=== PATIENT | female | born 1990 | race Caucasian/White ===

== ENCOUNTER → 2020-03-10 11:53 | Outpatient (BNVA) | payer OTHER, SELFPAY | PROVIDERS: Family Provider Nurse Practitioner; PCP Internal Medicine; Visit Provider Nurse Practitioner Family | DX: Z20.828 Contact with and (suspected) exposure to other viral communicable diseases (principal) | CPT/HCPCS: 87635 ==

== ENCOUNTER 2020-05-17 11:17 | Outpatient (CLI) | payer OTHER, SELFPAY ==
--- NOTE | 2020-05-17 | CT_ITS ---
WS: [id number] NONCONTRAST OF RIGHT LOWER EXTREMITY CLINICAL INFORMATION: Sinus tarsi TECHNIQUE: Noncontrast right lower extremity with coronal and sagittal reformatted images. Imaging obtained in neutral and supination with foot taped on the supination images. 3-D reformatted images w ere obtained. COMPARISON: 04 05,019 DLP: 1082.[address] scans at [facility] use at least one of these dose optimization techniques: automat ed exposure control; mA and/or kV adjustment per patient size (includes targeted exams where dose is matched to clinical indication); or iterative reconstruction. FINDINGS: Normal anatomic alignment. Normal medial and lateral malleolus. No acute avulsion fractures. Normal t alar dome.Normal calcaneus. Normal cuboid. Navicular is normal in appearance with mild hypertrophic r idging. Normal cuneiforms. Metatarsal bases appear normal. Normal tibiotalar joint. Mild plantar subc utaneous edema. Otherwise normal soft tissues. Tarsal coalition: None JOINT SPACES (normal joint space 6 mm): Middle talar facet and talus: 1.4 mm Talus and tarsal navicular: 1.0 mm 3-D REFORMAT NEUTRAL/SUPINATION INSTABILITY EVALUATION OF THE CALCANEUS, TALUS, AND NAVICULAR: Progressed joint space narrowing on the supination views with talocalcaneal measuring less than 1 mm and talonavicular measuring less than 1 mm on the supination views. Mild clockwise rotation of the an terior talus on the navicular between the neutral and supination views suggesting mild instability. N ormal rotation of the navicular relative to the first and second cuneiforms and metatarsals. CT/CT ankle RT wo con* [id number] IMPRESSION: 1. Abnormal joint space narrowing at the talocalcaneal/middle talar facet and talus/tarsal navicular articulations measuring less than 1 mm. This is progress ed on the supination imaging. 2. Slight clockwise rotation of the talus on the navicular suggesting mild ins tability on the supination imaging.
--- NOTE | 2020-05-17 11:25 | CT_ITS ---
WS: [id number] NONCONTRAST OF RIGHT LOWER EXTREMITY CLINICAL INFORMATION: Sinus tarsi TECHNIQUE: Noncontrast right lower extremity with coronal and sagittal reformatted images. Imaging obtained in neutral and supination with foot taped on the supination images. 3-D reformatted images w ere obtained. COMPARISON: 04 05,019 DLP: 1082.[address] scans at [facility] use at least one of these dose optimization techniques: automat ed exposure control; mA and/or kV adjustment per patient size (includes targeted exams where dose is matched to clinical indication); or iterative reconstruction. FINDINGS: Normal anatomic alignment. Normal medial and lateral malleolus. No acute avulsion fractures. Normal t alar dome.Normal calcaneus. Normal cuboid. Navicular is normal in appearance with mild hypertrophic r idging. Normal cuneiforms. Metatarsal bases appear normal. Normal tibiotalar joint. Mild plantar subc utaneous edema. Otherwise normal soft tissues. Tarsal coalition: None JOINT SPACES (normal joint space 6 mm): Middle talar facet and talus: 1.4 mm Talus and tarsal navicular: 1.0 mm 3-D REFORMAT NEUTRAL/SUPINATION INSTABILITY EVALUATION OF THE CALCANEUS, TALUS, AND NAVICULAR: Progressed joint space narrowing on the supination views with talocalcaneal measuring less than 1 mm and talonavicular measuring less than 1 mm on the supination views. Mild clockwise rotation of the an terior talus on the navicular between the neutral and supination views suggesting mild instability. N ormal rotation of the navicular relative to the first and second cuneiforms and metatarsals. CT/CT 3D reconstruction [id number] IMPRESSION: 1. Abnormal joint space narrowing at the talocalcaneal/middle talar facet and talus/tarsal navicular articulations measuring less than 1 mm. This is progress ed on the supination imaging. 2. Slight clockwise rotation of the talus on the navicular suggesting mild ins tability on the supination imaging.
--- NOTE | 2020-05-17 11:25 | CT_ITS ---
WS: [id number] NONCONTRAST OF RIGHT LOWER EXTREMITY CLINICAL INFORMATION: Sinus tarsi TECHNIQUE: Noncontrast right lower extremity with coronal and sagittal reformatted images. Imaging obtained in neutral and supination with foot taped on the supination images. 3-D reformatted images w ere obtained. COMPARISON: 04 05,019 DLP: 1082.[address] scans at [facility] use at least one of these dose optimization techniques: automat ed exposure control; mA and/or kV adjustment per patient size (includes targeted exams where dose is matched to clinical indication); or iterative reconstruction. FINDINGS: Normal anatomic alignment. Normal medial and lateral malleolus. No acute avulsion fractures. Normal t alar dome.Normal calcaneus. Normal cuboid. Navicular is normal in appearance with mild hypertrophic r idging. Normal cuneiforms. Metatarsal bases appear normal. Normal tibiotalar joint. Mild plantar subc utaneous edema. Otherwise normal soft tissues. Tarsal coalition: None JOINT SPACES (normal joint space 6 mm): Middle talar facet and talus: 1.4 mm Talus and tarsal navicular: 1.0 mm 3-D REFORMAT NEUTRAL/SUPINATION INSTABILITY EVALUATION OF THE CALCANEUS, TALUS, AND NAVICULAR: Progressed joint space narrowing on the supination views with talocalcaneal measuring less than 1 mm and talonavicular measuring less than 1 mm on the supination views. Mild clockwise rotation of the an terior talus on the navicular between the neutral and supination views suggesting mild instability. N ormal rotation of the navicular relative to the first and second cuneiforms and metatarsals. CT/CT ankle RT wo con* [id number] IMPRESSION: 1. Abnormal joint space narrowing at the talocalcaneal/middle talar facet and talus/tarsal navicular articulations measuring less than 1 mm. This is progress ed on the supination imaging. 2. Slight clockwise rotation of the talus on the navicular suggesting mild ins tability on the supination imaging.
== END 2020-05-17 11:18 | disposition home or self-care (01) ==
LOC: RADWPI 11:22
PROVIDERS: PCP Internal Medicine; Visit Provider Podiatrist Primary Podiatric Medicine
DX: M25.571 Pain in right ankle and joints of right foot (principal)
CPT/HCPCS: 73700; 76377

== ENCOUNTER 2020-08-25 19:32 | Emergency (ER) | payer OTHER, SELFPAY ==
[2020-08-25 19:38] VITALS: BP 147/92; PULSE 100; RESP 18; TEMP 36.8; O2SAT 98; BMI 23.8
--- NOTE | 2020-08-25 19:46 | ED_ITS ---
HPI - Extremity Problem General: Chief complaint: Extremity Injury, Upper Stated complaint: finger laceration Time Seen by Provider: 08/25/20 19:40 Source: patient Mode of arrival: ambulatory Limitations: no limitations History of Present Illness: HPI Narrative: Patient is a 30-year-old female who presents to ED today with a complaint to an injury to her left middle finger. Patient states she was at an auction and states she was picking up a metal pole when the pole accidentally slid down her left middle finger causing an abrasion. She states she is not having any bony tenderness. She has full ROM of digit. She knows the abrasion does not require repair. She is simply requesting a tetanus shot as she states hers was over 7 years ago. MD Complaint: extremity pain Onset (ago): hour(s) Location: left and upper extremity (middle finger) Radiation: none Relieving factors: nothing Exacerbating factors: nothing Associated symptoms: Reports no associated symptoms Review of Systems Musc: Reports: extremity pain (L middle finger) Skin/Breast: Reports: other (abrasion left middle finger) Neuro: Denies: numbness in extremities or sensory changes PFSH ED PFSH: Family History Mother SunDown syndrome Social History Smoking and tobacco status: former smoker Alcohol intake: current Alcohol intake frequency: holidays/special occasions only Marital status: Current gender identity: Female Female Reproductive History: Date of last menstrual period: 08/02/20 Spontaneous abortions: No Physical Exam Const: COMMON NORMALS: no acute distress, average body habitus, patient oriented x3, no limitations, healthy appearing, alert and well nourished Extremity: COMMON NORMALS: full ROM GENERAL: Yes normal exam except as noted OTHER: full ROM of L middle finger; no swelling; has small abrasion to volar PIP joint of left middle finger; NV intact Neuro: COMMON NORMALS: patient oriented x3, no focal motor deficits and no sensory deficits noted SENSORIUM/ORIENTATION: Yes alert Skin: NARRATIVE SKIN EXAM: see extremity assessment Course Vital Signs: Vital signs: Vital Signs Temperature 98.3 F 08/25/20 19:38 Pulse Rate 100 08/25/20 19:38 Respiratory Rate 18 08/25/20 19:38 Blood Pressure 147/92 08/25/20 19:38 Pulse Oximetry 98 08/25/20 19:38 MDM - Extremity (Nontraumatic) MDM Narrative: Medical decision making narrative: Tetanus updated. Wound does not require repair. Wound care discussed for home. Discharge Plan Discharge Patient Disposition: Home Clinical Impression: Abrasion of left middle finger Qualifiers: Encounter type: initial encounter Qualified Code(s): S60.413A - Abrasion of left middle finger, initial encounter Condition: Stable Prescriptions: No Action bupropion HCl [Wellbutrin XL] 300 mg tablet extended release 24 hr 300 mg PO QAM RF: 0 propranolol 80 mg tablet 80 mg PO TID RF: 0 cetirizine [Zyrtec] 10 mg tablet 10 mg PO DAILY RF: 0 methenamine hippurate 1 gram tablet 1 g PO DAILY RF: 0 ascorbate calcium (vitamin C) 500 mg tablet 500 mg PO BID RF: 0 budesonide-formoterol [Symbicort] 160-4.5 mcg/actuation HFA aerosol inhaler 2 puff inhalation BID RF: 0 Discharge Orders: Discharge ED (Routine); Ordered 08/25/20 Ordered By: Aminata Cobb Referrals: Hussein Martinez [Primary Care Provider] - Patient Instructions: Diphtheria/Tetanus Vaccine (Injection) Coding Level of Care Code ED Adult Literacy Instructor for Chg Fwd Exam Expanded Problem Focused
[2020-08-25 19:59] VITALS: BP 135/83; PULSE 66; RESP 16; TEMP 35.7
--- NOTE | 2020-08-25 20:02 | PC.NURSE ---
Pt has small lac to left middle finger. Pt has no continuous bleeding, just a small laceration.
[2020-08-25] MEDS: tetanus-diphtheria tox (adult) 0.5 mL SDV IM (20:03)
== END 2020-08-25 20:13 | disposition home or self-care (01) ==
LOC: ER 20:05
PROVIDERS: Emergency Provider Physician Assistant; PCP Internal Medicine
DX: S60.413A Abrasion of left middle finger, initial encounter (principal); Z87.891 Personal history of nicotine dependence; W22.8XXA Striking against or struck by other objects, initial encounter; Z23 Encounter for immunization
CPT/HCPCS: 90471; 90714; 99282

== ENCOUNTER 2020-11-08 20:14 | Emergency (ER) | payer OTHER, SELFPAY ==
[2020-11-08 20:39] VITALS: BP 156/84; PULSE 118; RESP 18; TEMP 36.6; O2SAT 95; BMI 23.8
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
[2020-11-08] MEDS: ipratropium-albuterol 3 mL Neb INHALATION (21:18)
[2020-11-08 21:20] VITALS: PULSE 118; RESP 24; O2SAT 96
[2020-11-08 21:25] VITALS: PULSE 120
[2020-11-08 22:06] VITALS: BP 140/86; PULSE 89; RESP 18; TEMP 37; O2SAT 97
== END 2020-11-08 22:08 | disposition home or self-care (01) ==
PROVIDERS: Emergency Provider Nurse Practitioner Family; PCP Internal Medicine
DX: J45.41 Moderate persistent asthma with (acute) exacerbation (principal); T59.91XA Toxic effect of unspecified gases, fumes and vapors, accidental (unintentional), initial encounter; Z87.891 Personal history of nicotine dependence
CPT/HCPCS: 94640; 99283

== ENCOUNTER 2021-11-28 08:19 | Outpatient (CLI) | payer OTHER, SELFPAY ==
--- NOTE | 2021-11-28 13:03 | PFTS_ITS ---
Date of Study:11/28/21 Date of Dictation: MECHANICS: Forced vital capacity (FVC) is normal. Forced expiratory volume in one second (FEV1) is normal. FEV1/FVC is reduced. FLOW VOLUME LOOP: Significant scooping. LUNG VOLUMES: Total lung capacity (TLC) is normal. Residual volume (RV) is normal. DIFFUSING CAPACITY FOR CARBON MONOXIDE: Normal. INTERPRETATION: The prebronchodilator spirometry is consistent with moderate airflow obstruction. The postbronchodilator spirometry is consistent with mild airflow obstruction. There is a significant postbronchodilator response. Lung volumes are normal. Gas exchange (DLCO) is normal. The pulmonary function tests are very consistent with reversible airflow obstruction such as asthma. MTDD
== END 2021-11-28 08:20 | disposition home or self-care (01) ==
LOC: RT 08:19
PROVIDERS: PCP Internal Medicine; Visit Provider Nurse Practitioner
DX: J45.40 Moderate persistent asthma, uncomplicated (principal)
CPT/HCPCS: 94060; 94726; 94729; J7614

== ENCOUNTER 2021-12-09 13:09 | Outpatient (CLI) | payer OTHER, SELFPAY ==
--- NOTE | 2021-12-09 13:22 | MM_ITS ---
WS: [id number] BILATERAL 3D TOMOSYNTHESIS DIGITAL DIAGNOSTIC MAMMOGRAPHY WITH CAD CLINICAL INFORMATION: LT BREAST LUMP HISTORY: LEFT breast lump COMPARISON: 2019 TECHNIQUE: Bilateral CC, MLO, and ML views. FINDINGS: The breasts are composed of heterogeneous fibroglandular density, which can limit the detection of sm all underlying mass lesions. Punctate and lucent centered calcifications. Palpable marker at the LEFT areola. Ultrasound described below ULTRASOUND BREAST LEFT TECHNIQUE: Ultrasound left breast focused area of concern. CLINICAL INFORMATION: LT BREAST LUMP COMPARISON: None. FINDINGS: Ultrasound LEFT breast in the area of concern near the areola. No suspicious cystic or solid lesions. Small dilated duct at the 9:00 position. No suspicious lesions to target for biopsy. Findings are be nign. MM/[place] [id number] IMPRESSION: BI-RADS: 2-Benign FOLLOW UP: 1 Year Follow-up Recommend return to annual screening mammography.
== END 2021-12-09 13:10 | disposition home or self-care (01) ==
PROVIDERS: PCP Internal Medicine; Visit Provider Nurse Practitioner
DX: N63.20 Unspecified lump in the left breast, unspecified quadrant (principal)
CPT/HCPCS: 76642; 77062

== ENCOUNTER 2021-12-12 20:00 | Outpatient (CLI) | payer OTHER, SELFPAY | END 2021-12-12 20:01 | disposition home or self-care (01) | LOC: SLEEP 12-13 06:45 | PROVIDERS: PCP Internal Medicine; Visit Provider Nurse Practitioner | DX: R06.83 Snoring (principal); R53.83 Other fatigue; G47.33 Obstructive sleep apnea (adult) (pediatric) | CPT/HCPCS: 95810 ==

== ENCOUNTER 2022-02-20 06:00 | Outpatient (RCR) | payer OTHER, SELFPAY | END 2022-02-24 23:59 | disposition home or self-care (01) | LOC: SPT 06:00 | PROVIDERS: PCP Internal Medicine; Visit Provider Nurse Practitioner | DX: N39.3 Stress incontinence (female) (male) (principal) | CPT/HCPCS: 97110; 97161 ==

== ENCOUNTER 2022-02-25 06:00 | Outpatient (RCR) | payer OTHER, SELFPAY | END 2022-03-26 23:59 | disposition home or self-care (01) | LOC: SPT 06:00 | PROVIDERS: PCP Internal Medicine; Visit Provider Nurse Practitioner | DX: N39.3 Stress incontinence (female) (male) (principal) | CPT/HCPCS: 97110; 97530 ==

== ENCOUNTER 2022-03-04 20:00 | Outpatient (CLI) | payer OTHER, SELFPAY | END 2022-03-04 20:01 | disposition home or self-care (01) | LOC: SLEEP 03-05 07:39 | PROVIDERS: PCP Internal Medicine; Visit Provider Nurse Practitioner | DX: G47.33 Obstructive sleep apnea (adult) (pediatric) (principal) | CPT/HCPCS: 95811 ==

== ENCOUNTER 2023-01-13 10:00 | Outpatient (CLI) | payer OTHER, SELFPAY ==
--- NOTE | 2023-01-13 10:06 | MM_ITS ---
WS: [id number] BILATERAL 3D TOMOSYNTHESIS DIGITAL SCREENING MAMMOGRAPHY WITH CAD CLINICAL INFORMATION: SCREENING HISTORY: Screening mammogram. No current complaints. COMPARISON: 12/09/2021 TECHNIQUE: Bilateral CC and MLO views. FINDINGS: The breasts are composed of heterogeneous fibroglandular density tissue, which can limit the detectio n of small underlying mass lesions. No suspicious mass, asymmetry, calcifications, or architectural d istortion. No evidence of malignancy. Punctate and lucent centered calcifications. IMPRESSION: MM/[place] [id number] BI-RADS: 2-Benign FOLLOW UP: 1 Year Follow-up Recommend return to annual screening mammography.
== END 2023-01-13 10:01 | disposition home or self-care (01) ==
PROVIDERS: PCP Internal Medicine; Visit Provider Internal Medicine
DX: Z12.31 Encounter for screening mammogram for malignant neoplasm of breast (principal)
CPT/HCPCS: 77063; 77067

== ENCOUNTER 2024-04-06 15:06 | Outpatient (CLI) | payer OTHER, SELFPAY ==
--- NOTE | 2024-04-06 15:16 | US_ITS ---
WS: [id number] RENAL ULTRASOUND HISTORY: DENSITY MEDIAL ASPECT OF RIGHT KIDNEY COMPARISON: None available. TECHNIQUE: 2-D and color Doppler imaging of the kidney submitted. Right kidney: 10.6 cm x 4.5 cm x 3.9 cm. Cortex: 1.3 cm Normal echogenicity with no hydronephrosis or mass. Left kidney: 9.2 cm x 4.9 cm x 4.4 cm. Cortex: 1.3 cm Normal echogenicity with no hydronephrosis or mass. Aorta: Normal. Urinary Bladder: Normal distention. US/US renal BI* [id number] IMPRESSION: Normal renal ultrasound.
== END 2024-04-06 15:07 | disposition home or self-care (01) ==
PROVIDERS: PCP Nurse Practitioner; Visit Provider Nurse Practitioner
DX: R93.421 Abnormal radiologic findings on diagnostic imaging of right kidney (principal)
CPT/HCPCS: 76770

== ENCOUNTER 2025-02-04 18:36 | Emergency (ER) | payer OTHER, SELFPAY ==
--- OUTSIDE RECORDS SUMMARY | 2025-02-04 18:43 | XMS_ITS | Clinical Summary ---
Author Organization [facility] Address [address] [place] [address] Care Team Providers Care Alarm Technician Name Role Phone Unavailable Primary Care Provider Unavailabl e Allergies Active Allergy Reactions Criticality Noted Date Comments Alpha-Gal (Bvucifsct-Mujhr-0,3-Galactose) Hives High 05/30/2024 Medications albuterol sulfate HFA 90 mcg/actuation aerosol inhaler Take by inhalation . 09/09/2023 Active buPROPion (WELLBUTRIN) 75 mg tablet Take 150 mg by mouth. 11/09/2023 Active gabapentin (NEURONTIN) 100 mg capsule Take 100 mg by mouth. 02/17/2024 Active Active Problems No known active problems Encounters Date Type Department Care Team Description 01/11/2025 External Device Data [facility]STRACTION Provider, Abstract 12/14/2024 External Device Data [facility] Provider, Abstract 12/13/2024 External Device Data [facility] Provider, Abstract 11/30/2024 External Device Data [facility] Provider, Abstract 11/29/2024 External Device Data [facility] Provider, Abstract 11/09/2024 External Device Data [facility] Provider, Abstract 11/09/2024 External Device Data [facility] Provider, Abstract from Last 3 Months Social History Tobacco Use Types Packs/Day Years Used Date Smoking Tobacco: Never Tobacco Cessation:Counseling Given: Not Answered Comments Unknown Sex and Gender Information Value Date Recorded Sex Assigned at Not on file Legal Sex Female 8:06 AM CLEAN UP SUPERVISOR Gender Identity Not on file Sexual Orientation Not on file Last Filed Vital Signs Vital Sign Reading Time Taken Comments Blood Pressure 102/70 05/30/2024 10:55 AM CLEAN UP SUPERVISOR Pulse - - Temperature - - Respiratory Rate - - Oxygen Saturation - - Inhaled Oxygen Concentration - - Weight 63.5 kg (140 lb) 05/30/2024 10:55 AM CLEAN UP SUPERVISOR Height 157.5 cm (5' 2 ) 05/30/2024 10:55 AM CLEAN UP SUPERVISOR Body Mass Index 25.61 05/30/2024 10:55 AM CLEAN UP SUPERVISOR Plan of Treatment Health Maintenance Due Date Last Done Comments Pre-Diabetes and Diabetes Screening 1988 HPV/Cotest (21-29) 2009 HPV VACCINES (1 - 3-dose SCD M series) 07/06/2015 CERVICAL CANCER SCREENING 2018 HPV/Cotest (30-65) 2018 PAP SMEAR 2018 08/18/2014, 01/25, 10/31/2009, Additional history exists INFLUENZA VACCINE (#1) 2024 , 03/03/2019, 02/12/2018, Additional history exists DTAP/TDAP/TD VACCINES (5 - T d or Tdap) 08/25/2030 08/25/2020, 07/28/2016, 05/04/2014, Additional history exists HEPATITIS B VACCINES Completed 02/08/2015, 06/20/2008, 12/10/2006, Additional history exists Insurance [place] [address] [employer]
--- OUTSIDE RECORDS SUMMARY | 2025-02-04 18:43 | XMS_ITS | Patient Health Record ---
Author Organization [facility] Address [address] [place] [address] Care Team Providers Care Lawn And Garden Technician Name Role Phone Khoi Alejandro Primary Care Provider JAXSON Jordan Unavailable [phone] Allergies Allergen (clinical drug ingredient) Drug/Non Drug Allergy documented on EMR Reaction Allergy Type Onset Date Status mammal and dairy products (uncoded) Unknown Allergy Active pecans, avacados, melons (uncoded) Unknown Allergy Active Reason For Referral No Information Medications Medication SIG (Take, Route, Fr equency, Duration) Notes Start Date End Date Status buPROPion HCl Active Propranolol HCl ER A ctive Albuterol Active Symbicort Active Cetirizine HCl Activ e ALPRAZolam Active Social History Tobacco Use: Social History Observation Description Date Details (start date - stop date) Former Smoker NA - NA Tobacco Use/Smoking Question Answer Notes Tobacco use: former smoker How long has it been since you last smoked? 5-10 years Alcohol Screen (Audit-C) Question Answer Notes Did you have a drink contain ing alcohol in the past year? Yes How often did you have a dri nk containing alcohol in the past year? 4 or more times a week (4 points) How many drinks did you have on a typical day when you were drinking in the past year? 5 or 6 drinks (2 points) How often did you have 6 or more drinks on one occasion in the past year? Monthly (2 points) Points 8 Interpretation Positive Problems Problem Type SNOMED Code ICD Code Onset Dates Problem Status W/U Status Risk Notes Problem Mixed incontinence (384036461) Urinary incontinence, mixed (N39.46) Active confirmed Problem Urinary incontinence (274546035) Urinary incontinence (R32) Active confirmed Problem Overactive urinary bladder (disorder) (504626502) OAB (overactive bladder) (N32.81) Active confirmed Plan Of Treatment No Information Insurance Providers Payer Name Payer Address Payer Phone Subscriber Number Group Number Insured Name Patient Relationship to Insured Coverage Start Date Coverage End Date [employer] [address] [place], [place] [id number] Aniya Diez Self - patient is the insured Medical (General) History Medical History History ICD Code alpha gal syndrome recurrent UTI Intersticial cystitis Surgical History Surgery Date(Month/Year) tubal ligation D&C x 2 observatory laproscopy 2016
[2025-02-04 18:53] VITALS: BP 126/84; PULSE 83; RESP 18; TEMP 36.3; O2SAT 100; BMI 23.8
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
[2025-02-04] MEDS: fentaNYL 50 mcg/mL INJ 2mL IVP (19:51)
[2025-02-04] MEDS: ondansetron 2 mg/ML SDV 2 mL 4 MG IVP (19:51)
[2025-02-04 20:00] VITALS: BP 137/71; PULSE 81; RESP 16; O2SAT 93
[2025-02-04] MEDS: HYDROcodone-acetaminophen 7.5-325 mg Tablet 1 TAB PO (20:48)
[2025-02-04 20:52] VITALS: BP 121/78; PULSE 76; RESP 16; O2SAT 98
== END 2025-02-04 20:52 | disposition home or self-care (01) ==
PROVIDERS: Emergency Provider Physician Assistant; PCP Nurse Practitioner
DX: S00.83XA Contusion of other part of head, initial encounter (principal); W22.8XXA Striking against or struck by other objects, initial encounter
CPT/HCPCS: 70486; 96374; 96375; 99285; J2405; J3010; J9999